=== PATIENT | male | born 1975 | race Caucasian/White ===

== ENCOUNTER 2017-06-10 23:03 | Emergency (ER) | payer OTHER ==
[2017-06-10 23:44] VITALS: RESP 18
[2017-06-11] MEDS ORDERED: Sodium Chloride 0.9% 1,000 ML IV STA (00:58)
--- NOTE | 2017-06-11 00:58 | ED PDOC ---
Arrival/HPI - General Chief Complaint: Fever Time Seen by Provider: 06/11/17 00:47 Historian: Patient - History of Present Illness Narrative History of Present Illness (Text): 06/11/17 00:53 Govind Butler is a 41 year old male, with no significant past medical history, who presents to the Emergency department complaining of fever and chills for the past 3 days. Patient states he was seen by his PMD 3 days prior for similar complaint and given Tylenol 325mg, which he has been taking with no significant relief. Patient also reports a mild headache and denies any nausea, vomiting, photophobia, neck pain/stiffness, back pain, or focal neurological deficits. Patient also denies any recent travel, abdominal pain, urinary symptoms, or any other complaints. Time/Duration: < week (3 days) Symptom Onset: Gradual Symptom Course: Unchanged Activities at Onset: Rest, Light Context: Home Past Medical History - Provider Review Nursing Documentation Reviewed: Yes - Psychiatric Hx Substance Use: No Family/Social History - Physician Review Nursing Documentation Reviewed: Yes Family/Social History: Unknown Family HX Smoking Status: Never Smoked Hx Alcohol Use: No Hx Substance Use: No Allergies/Home Meds Allergies/Adverse Reactions: Allergies No Known Allergies Allergy (Verified 06/10/17 23:44) Home Medications: Home Meds Medication Instructions Recorded Confirmed RX: No Known Home Med 06/10/17 06/10/17 Review of Systems - Physician Review All systems were reviewed & negative as marked: Yes Physical Exam - Physical Exam Narrative Physical Exam (Text): - Review of Systems Constitutional: +fever, +chills. absent: Fatigue, Weight Change Eyes: Normal ENT: Normal Respiratory: Normal absent: SOB, Cough, Sputum Cardiovascular: Normal absent: Chest pain, Palpitations, Syncope Gastrointestinal: Normal absent: Abdominal pain, Diarrhea, Nausea, Vomiting Genitourinary: Normal. absent: Dysuria, Frequency, Hematuria Musculoskeletal: Normal. absent: Arthralgias, Back Pain, Neck Pain Skin: Normal Neurological: +mild headache absent: Focal Weakness Endocrine: Normal Hemo/Lymphatic: Normal Psychiatric: Normal - Physical exam Patient appears age appropriate, speaking full sentences without difficulty - Systems Exam Head: Present: Atraumatic, Normocephalic Pupils: Present: PERRL Extraocular Muscles: Present: EOMI Conjunctiva: Present: Normal Ears: Present: Normal, NORMAL TM, Normal Canal. No: Erythema, TM Bulging, Fluid , TM Perf Pharnyx: Present: Normal. No: ERYTHEMA, EXUDATE, TONSILS ENLARGED, Peritonsilar Swelling, Uvular Deviation, Muffled/Hoarse Voice, Soft Palate/ Uvular Edema, Other Mouth: Present: Moist Mucous Membranes Neck: Present: Normal Range of Motion. No: MIDLINE TENDERNESS, Paraspinal Tenderness, Meningeal signs Respiratory/Chest: Present: Clear to Auscultation, Good Air Exchange. No: Respiratory Distress, Accessory Muscle Use, Tachypnic Cardiovascular: Present: Regular Rate and Rhythm, Normal S1, S2, Peripheral Pulses Present. No: Murmurs Abdomen: Present: Normal Bowel Sounds, No: Tenderness, Peritoneal Signs, Rebound, Guarding, Distention Back: Present: Normal Inspection. No: Midline Tenderness, Paraspinal Tenderness Upper Extremity: Present: Normal Inspection. No: Cyanosis, Edema Lower Extremity: Present: Normal Inspection. No: Edema Neurological: Present: GCS=15, Speech Normal, cranial nerves II through XII fully intact with no cerebellar abnormality, neuro-sensory fully intact. No focal neurological deficits. Skin: Present: Warm, Dry, Normal Color. No: Rashes Lymphatic: Present: OX3, NI, NC Psychiatric: Present: Alert, Oriented x 3, Normal Insight, Normal Concentration Vital Signs Reviewed: Yes Vital Signs Temp Pulse Resp BP Pulse Ox 06/11/17 05:16 99.6 F 83 18 111/60 99 06/10/17 23:50 126/74 06/10/17 23:42 100.1 F H 98 H 18 97 Temperature: Febrile Blood Pressure: Normal Pulse: Regular Respiratory Rate: Normal Appearance: Positive for: Well-Appearing, Non-Toxic, Comfortable Pain Distress: None Mental Status: Positive for: Alert and Oriented X 3 Medical Decision Making ED Course and Treatment: 06/11/17 00:53 Impression: 41 year old male complaining of fever, chills, and mild headache. On exam, pt is febrile, otherwise unremarkable. Differential Diagnosis included but are not limited to: URI vs. viral syndrome vs. bacteremia Plan: -- CXR -- Labs, blood cultures -- Urinalysis, urine cultures -- IV fluids -- Toradol -- Reassess and disposition Progress Notes: Discussed plan with pt, instructed to return to ER if blood cultures are positive. Pt agreeable and verbalizes understanding 06/11/17 02:24 CXR Impression: As read by me, no pneumothorax, no pneumonia, no cardiomegaly, no infiltrates. 06/11/17 03:16 Lab results noted, elevated AST/ALT. Will order abdominal imaging, mono screen, hepatitis panel. 06/11/17 04:04 CT Abdomen and Pelvis Impression: Dictated and Authenticated by: Amarilys Maradiaga MD No acute intra-abdominal pathology. 06/11/17 06:14 pt afebrile, in no distress, denies complaints pt instructed against contact sports in the event this is mono pt instructed to f/u in [facility] records for lab results and to f/u with PMD at [place] for further w/u pt states he feels comfortable being dc'd home at this time pt also informed he has blood in his urine for which he needs w/u with his PMD and possibly urologist outpatient Pt states he understands to return to the ER right away for new or worsening symptoms or for inability to f/u with PMD or specialist as instructed. Patient states that he fully agrees with and understands discharge instructions. States that he agrees with the plan and disposition. Verbalized and repeated discharge instructions and plan. I have given the patient opportunity to ask any additional questions. - Lab Interpretations Lab Results: 06/11/17 01:05 06/11/17 01:05 Lab Results 06/11/17 02:40: Urine Color Yellow, Urine Appearance Sl cloudy, Urine pH 7.0, Ur Specific [place] <= 1.005, Urine Protein Negative, Urine Glucose (UA) Negative, Urine Ketones Negative, Urine Blood Small H, Urine Nitrate Negative, Urine Bilirubin Negative, Urine Urobilinogen 0.2, Ur Leukocyte Esterase Negative , Urine RBC 2 - 5, Urine WBC 0 - 2, Ur Epithelial Cells 0 - 2, Urine Bacteria Few 06/11/17 01:05: Sodium 139, Potassium 4.1, Chloride 101, Carbon Dioxide 27, Anion Gap 15, BUN 11, Creatinine 0.8, Est GFR ( Amer) > 60, Est GFR (Non- Af Amer) > 60, Random Glucose 106, Calcium 9.2, Total Bilirubin 1.9 H, AST 153 H , ALT 214 H, Alkaline Phosphatase 169 H, Total Protein 7.8, Albumin 4.1, Globulin 3.6, Albumin/Globulin Ratio 1.1 06/11/17 01:05: WBC 4.5, RBC 4.79, Hgb 14.9, Hct 42.6, MCV 88.9, MCH 31.1, MCHC 35.0, RDW 12.4, Plt Count 143, MPV 10.7, Gran % 61.8, Lymph % (Auto) 20.0 L, [place] % (Auto) 17.1 H, Eos % (Auto) 0.7 L, Baso % (Auto) 0.4, Gran # 2.77, Lymph # 0.9 L, [place] # 0.8 H, Eos # 0.0, Baso # 0.02 I have reviewed the lab results: Yes - RAD Interpretation Radiology Orders: 06/11/17 01:00 CHEST PORTABLE [RAD] Stat 06/11/17 03:17 ABD & PELVIS IV CONTRAST ONLY [CT] Stat Kettle Room Helper: ED Physician - Medication Orders Current Medication Orders: Discontinued Medications Sodium Chloride (Sodium Chloride 0.9%) 1,000 mls @ 1,000 mls/hr IV .Q1H STA Stop: 06/11/17 01:57 Last Admin: 06/11/17 01:33 Dose: 1,000 mls/hr Iohexol (Omnipaque 350 100 Ml) Confirm Administered Dose 350 mg .ROUTE .STK-MED ONE Stop: 06/11/17 03:24 Ketorolac Tromethamine (Toradol) 30 mg IVP STAT STA Stop: 06/11/17 00:59 Last Admin: 06/11/17 01:34 Dose: 30 mg - Scribe Statement The provider has reviewed the documentation as recorded by the Ashley Tobias Provider Scribe Attestation: All medical record entries made by the Parminderibdebbie were at my direction and personally dictated by me. I have reviewed the chart and agree that the record accurately reflects my personal performance of the history, physical exam, medical decision making, and the department course for this patient. I have also personally directed, reviewed, and agree with the discharge instructions and disposition. Disposition/Present on Arrival - Present on Arrival Any Indicators Present on Arrival: No History of DVT/PE: No History of Uncontrolled Diabetes: No Urinary Catheter: No History of Decub. Ulcer: No History Surgical Site Infection Following: None - Disposition Have Diagnosis and Disposition been Completed?: Yes Diagnosis: Fever Disposition: HOME/ ROUTINE Disposition Time: 06:16 Patient Plan: Discharge Condition: GOOD Discharge Instructions (ExitCare): Fever in Adults (ED) Additional Instructions: PLEASE RETURN TO THE EMERGENCY DEPARTMENT FOR NEW OR WORSENING SYMPTOMS. RETURN RIGHT AWAY IF YOU CANNOT FOLLOW UP WITH YOUR PRIMARY CARE DOCTOR, CLINIC, OR SPECIALIST IN 1-2 DAYS. Forms: WORK NOTE
[2017-06-11 02:17] LABS: HEMOGLOBIN 14.9 gm/dL (14.0-18.0); MEAN CELL VOLUME 88.9 fL (80.0-105.0); MEAN CORPUSCULAR HEMOGLOBIN 31.1 pg (25.0-35.0); RBC 4.79 10^6/uL (3.5-6.1); WHITE BLOOD COUNT 4.5 10^3/ul (4.5-11.0)
[2017-06-11 02:18] LABS: BASO % 0.4 % (0.0-3.0); EOS % 0.7 % (1.5-5.0); GRAN # 2.77 (1.4-6.5); GRAN % 61.8 % (50.0-68.0); LYMPH # 0.9 (1.2-3.4); MEAN PLATELET VOLUME 10.7 fl (7.0-11.0); MONO # 0.8 (0.1-0.6); MONO % 17.1 % (1.0-6.0); PLATELET COUNT 143 10^3/uL (120.0-450.0); RED CELL DISTRIBUTION WIDTH 12.4 % (11.5-14.5)
[2017-06-11 02:19] LABS: BASO # 0.02 K/mm3 (0.0-2.0)
[2017-06-11 02:23] LABS: ALB/GLOB RATIO 1.1 (1.1-1.8); ALBUMIN 4.1 g/dL (3.0-4.8); ALT/SGPT 214 U/L (7-56); AST/SGOT 153 U/L (15-59); BLOOD UREA NITROGEN 11 mg/dL (7-21); CALCIUM 9.2 mg/dL (8.4-10.5); GFR AFRICAN-AMERICAN > 60; GFR NON-AFRICAN AMERICAN > 60
[2017-06-11 03:16] LABS: URINE BILIRUBIN NEGATIVE (NEGATIVE); URINE BLOOD SMALL (NEGATIVE); URINE GLUCOSE (UA) NEGATIVE (NEGATIVE); URINE LEUKOCYTE ESTERASE NEGATIVE Leu/uL (NEGATIVE); URINE NITRATE NEGATIVE (NEGATIVE); URINE PROTEIN NEGATIVE mg/dL (<30 mg/dL); URINE UROBILINOGEN 0.2 E.U./dL (<1 E.U./dL)
[2017-06-11 03:17] LABS: URINE APPEARANCE SL CLOUDY (CLEAR); URINE COLOR YELLOW (YELLOW)
[2017-06-11] MEDS ORDERED: Iohexol 350 MG/100 ML VIAL ONE (03:23)
[2017-06-11 03:48] LABS: URINE BACTERIA FEW (NEG); URINE EPITHELIAL CELLS 0 - 2 /hpf (0-5); URINE WBC 0 - 2 /hpf (0-6)
[2017-06-11 05:17] VITALS: BP 111/60; PULSE 83; TEMP 99.6; O2SAT 99
--- NOTE | 2017-06-11 08:59 | RAD ---
HISTORY: cough COMPARISON: No prior. FINDINGS: LUNGS: No active pulmonary disease. PLEURA: No significant pleural effusion identified, no pneumothorax apparent. CARDIOVASCULAR: Normal. OSSEOUS STRUCTURES: No significant abnormalities. VISUALIZED UPPER ABDOMEN: Normal. OTHER FINDINGS: None. IMPRESSION: No active disease.
--- NOTE | 2017-06-11 10:01 | CT ---
PROCEDURE: CT Abdomen and Pelvis with contrast HISTORY: fever, elevated liver enzymes COMPARISON: None. TECHNIQUE: Contrast dose: 100 cc of Omni 350 Radiation dose: Total exam DLP = 371 mGy-cm. This CT exam was performed using one or more of the following dose reduction techniques: Automated exposure control, adjustment of the mA and/or kV according to patient size, and/or use of iterative reconstruction technique. FINDINGS: LOWER THORAX: Unremarkable. LIVER: Unremarkable. No gross lesion or ductal dilatation. GALLBLADDER AND BILE DUCTS: Unremarkable. PANCREAS: Unremarkable. No gross lesion or ductal dilatation. SPLEEN: Unremarkable. ADRENALS: Unremarkable. No mass. KIDNEYS AND URETERS: Unremarkable. No hydronephrosis. No solid mass. VASCULATURE: Unremarkable. No aortic aneurysm. BOWEL: Unremarkable. No obstruction. No gross mural thickening. APPENDIX: Normal appendix. PERITONEUM: Unremarkable. No free fluid. No free air. LYMPH NODES: Unremarkable. No enlarged lymph nodes. BLADDER: Unremarkable. REPRODUCTIVE: Unremarkable. BONES: No acute fracture. OTHER FINDINGS: The report concurs with the preliminary [facility] report IMPRESSION: Unremarkable contrast enhanced CT of the abdomen and pelvis.
[2017-06-11 12:12] LABS: HEPATITIS B SURFACE AG NEGATIVE (NEGATIVE)
[2017-06-11 12:18] LABS: HEPATITIS A IGM NEGATIVE (NEGATIVE); HEPATITIS B CORE AB NEGATIVE (NEGATIVE)
[2017-06-11 12:30] LABS: HEPATITIS C ANTIBODY NEGATIVE (NEGATIVE)
== END 2017-06-11 06:24 | disposition home or self-care (01) ==
LOC: ED 23:03
DX: R50.9 Fever, unspecified (principal)
CPT/HCPCS: 71010; 74177; 80053; 80074; 81001; 85025; 86308; 87040; 87086; 96374; 99285; J1885; J7040; Q9967